=== PATIENT | female | born 1945 | race Caucasian/White ===

== ENCOUNTER 2021-09-08 08:32 | Outpatient (CLI) | payer MEDICARE ==
[2021-09-08] MEDS ORDERED: Iopamidol 370 76% 100 ML VIAL ONE (11:51)
== END 2021-09-08 08:33 | disposition home or self-care (01) ==
LOC: CT 08:32
PROVIDERS: ATTEND Internal Medicine Hematology & Oncology
DX: C50.811 Malignant neoplasm of overlapping sites of right female breast (principal); R74.01 Elevation of levels of liver transaminase levels; R16.0 Hepatomegaly, not elsewhere classified; R07.9 Chest pain, unspecified; R51.9 Headache, unspecified; R42 Dizziness and giddiness
CPT/HCPCS: 70470; 71260; 74160; 74177; 82565; Q9967

== ENCOUNTER 2022-01-31 11:30 | Outpatient (CLI) | payer MEDICARE | END 2022-01-31 11:31 | disposition home or self-care (01) | LOC: LABBT 11:30 | PROVIDERS: ATTEND Internal Medicine Gastroenterology | DX: R13.10 Dysphagia, unspecified (principal); Z20.822 Contact with and (suspected) exposure to COVID-19 | CPT/HCPCS: 87811 ==

== ENCOUNTER → 2022-02-02 | Day surgery (SDC) | payer MEDICARE | END | disposition home or self-care (01) | LOC: ENDO/OP 13:48 | PROVIDERS: ATTEND Internal Medicine Gastroenterology | DX: R13.10 Dysphagia, unspecified (principal) | CPT/HCPCS: 91010 ==

== ENCOUNTER 2022-05-17 19:19 | Emergency (ER) | payer MEDICARE ==
[2022-05-17] MEDS ORDERED: Ketorolac Tromethamine 30 MG/ML VIAL ONE (20:43)
[2022-05-17] MEDS ORDERED: Morphine 4 MG/ML VIAL ONE (21:16)
[2022-05-17] MEDS ORDERED: Ondansetron ODT 4 MG TAB ONE (21:51)
== END 2022-05-17 21:51 | disposition home or self-care (01) ==
LOC: ERS 19:19
DX: S52.532A Colles' fracture of left radius, initial encounter for closed fracture (principal); W01.0XXA Fall on same level from slipping, tripping and stumbling without subsequent striking against object, initial encounter
CPT/HCPCS: 96372; J1885; J2270; Q0162